=== PATIENT | male | born 1955 | race Caucasian/White ===

== ENCOUNTER 2017-11-08 03:36 | Emergency (ER) | payer BC, OTHER ==
[~2017-11-08] VITALS: Ht 188 cm; Wt 97.5 kg
[~2017-11-08 03:36] MED LIST: IBUPROFEN; NYQUIL
[2017-11-08 03:45] VITALS: BP_SYST 149
--- NOTE | 2017-11-08 03:45 | NUR ---
Patient to ER bed 06 to gown for evaluation. Side rails up.
--- NOTE | 2017-11-08 03:50 | NUR ---
Pt is AAOx4 and ambulatory. Per pt he has been having severe pain to the right side of his head which radiates to the L side, pain scale 9/10. Pt states that this pain has caused him to feel unsteady while ambulating. Pt denies any n/v. Will continue to monitor pt.
--- NOTE | 2017-11-08 04:00 | NUR ---
ER at bedside examining patient.
[2017-11-08] MEDS ORDERED: MORPHINE SULFATE 10 MG/ML VIAL IM ONE (04:30)
[2017-11-08] MEDS ORDERED: DIPHENHYDRAMINE INJ 50 MG/ML VIAL IM ONE (04:30)
[2017-11-08 04:45] VITALS: BP_SYST 140
--- NOTE | 2017-11-08 04:45 | NUR ---
Patient given written and verbal discharge instructions and verbalizes understanding. ER MD discussed with patient the results and treatment provided. Patient in stable condition. ID arm band removed. Rx of Kohler given. Patient educated on pain management and to follow up with PMD. Pain Scale 0/10. Opportunity for questions provided and answered. Medication side effect fact sheet provided.
== END 2017-11-08 04:45 | disposition home or self-care (01) ==
LOC: SED 03:36
DX: H92.02 Otalgia, left ear (principal); R51 Headache; B02.9 Zoster without complications; I10 Essential (primary) hypertension; K21.9 Gastro-esophageal reflux disease without esophagitis; Z85.3 Personal history of malignant neoplasm of breast
CPT/HCPCS: 96372; 99284; J1200; J2270